=== PATIENT | male | born 1945 | race African-American/Black ===

== ENCOUNTER 2017-12-08 08:00 | Outpatient (RCR) ==
--- NOTE | 2017-11-29 20:31 | RS.OPPTEV2 ---
Date of Note: 11/29/17 Visit #: 1 Date of Evaluation: 11/29/17 Payer Source: MEDICARE Surgery Performed?: Yes (cervical fusion 11/04/17) Treatment Diagnosis: UE weakness, s/p cervical spinal fusion History of Condition/Mechanism of Injury:: pt underwent cervical spine fusion on 11/04/17. pt has been experiencing RUE weakness since surgery. pt did receive home health PT/OT. Prior Level of Function.....Patient was independent with: ADL's, Self Care, Ambulation/Mobility, Community Integration/Access Functional Limitations: Sleep, Self Care, ADL's, Reaching, Pushing, Pulling, Lifting, Carrying, Community Access/Integration Current Subjective/complaints:: pt states he is still having cervical pain radiating into B shlds as well as weakness in RUE. pt states he is having difficulty using RUE at all. Treatment Side (optional): Right *Precautions: cervical collar is to be worn while in the car or up and around Medical History Medical History: Hypertension, Diabetes, Arthritis, Cancer (colon) Surgical History: Knee Replacement, Cervical Spine, CABG Smoking Status: Former smoker Hx Home Medications: aldactone, atorvastatin, cozaar, docusate sodium, eliquis, glipizide, metformin, jardiance, lopressor, methocarbamol, nitroglycerin, percocet Patient's Goals: be able to use my arm Pain Assessment - Pain Description Pain Location: cervical spine (posterior) radiating into B shlds R worse than L Current Pain Intensity: 8/10 Worst Pain Intensity: 10/10 Functional Outcome Measure UE Functional Index: 36 (55%) - G Codes & Severity Modifier G Codes & Modifier: carrying, moving, handling current: CK. carrying, moving, handling goal CI Source of G Code score: UE functional index Observation - Observation Inspection: pt wearing soft cervical collar Posture: Forward Head, Rounded Shoulders, Increased Thoracic Kyphosis, Decreased Lumbar Lordosis, Decreased Cervical Lordosis Handedness: Right Gait - Gait Pattern General Gait Pattern Observation: Crouched Gait General Range of Motion: LUE WFL's. BLE WFL's Muscle Strength: LUE atleast 3/5 as noted by AROM not MMT due to cervical surgery. BLE 5/5 - ROM Cervical Spine Range of Motion Limitations: Soft Tissue Tightness, Muscle Weakness, Pain Comments: unable to fully assess cervical ROM due to cervical collar and recent surgery. Shoulder ROM: Left WFL's Shoulder Muscle Strength: Left WFL's - Right Shoulder ROM Right Shoulder Flexion: 150 (AAROM supine) Right Shoulder Abduction: 114 (AAROM supine) Right Shoulder ROM Limitations: Soft Tissue Tightness, Muscle Weakness, Pain Comments: in sitting AROM flex 20, abd 40. IR WFL's. ER significantly limited - Right Shoulder Strength Right Shoulder Flexion: 2 Poor Right Shoulder Abduction: 2 Poor Right Shoulder External Rotation: 2 Poor Right Shoulder Internal Rotation: 2 Poor - Special Tests Comments: unable to perform special tests due to limited ROM> Palpation Palpation Findings: Tenderness, Trigger Point, Muscle Guarding Comments:: tenderness over biceps insertion,. trigger points noted in upper traps R worse than L,. muscle guarding noted in upper traps and scapular muscles Sensation - Sensation Right Upper Extremity: Impaired Left Upper Extremity: Impaired Right Lower Extremity: Intact/Normal Left Lower Extremity: Intact/Normal Comments: pt reports n/t B hands Balance - Sitting Balance Static Sitting Balance: Normal Dynamic Sitting Balance: Normal - Standing Balance Static Standing Balance: Good Dynamic Standing Balance: Good - Heat/Cryotherapy Treatment: Cryotherapy Comments:: cervical spine Interventions - Exercise/Activities/Manual Therapy Exercises/Activities: pt instructed on codmans, as well as scapular retraction and AAROM R shld Manual Therapy: n/a HOME EXERCISE PROGRAM: pt given written HEP including pendulum ex, AAROM R shld , scapular retraction - Charges Timed Code Treatment Minutes: 43 Total Treatment Time: 51 Procedures billed for this date of service:: eval med, cold pack EVALUATION COMPLEXITY LEVEL EVALUATION COMPLEXITY LEVEL: HISTORY: Medium (dm, htn, cervical sx, oa), EXAM OF BODY SYSTEMS: Medium (pain, ROM, strength, posture), CLINICAL PRESENTATION: Medium (evolving), CLINICAL DECISION MAKING: Medium Assessment Assessment: pt presents with increased muscle tightness and guarding in R upper trap, scapular area with trigger points noted in upper trap. pt with limited ROM and pain with AAROM. pt also with recent cervical fusion with limited cervical ROM. Plan to call MD to get clarification on any restrictions in cervical spine. Patient Education: Home Exercise Program, Education of Plan of Care Rehab Potential: Good Short Term Goals Goal #1: pt rate pain <6/10 Goal to be met by: 12/13/17 Goal #2: pt independent with initial HEP Goal to be met by: 12/13/17 Goal #3: pt with improve AROM R shld flex 90 abd 90 Goal to be met by: 12/13/17 Sewing Demonstrator Goals Goal #1: pt report pain <5/10 Goal to be met by: 12/27/17 Goal #2: pt report ability to perform ADL's independently Goal to be met by: 12/27/17 Goal #3: pt with improved ROM R shld AROM WFL's Goal to be met by: 12/27/17 Goal #4: Improve strength R shld to atleast 3 to 3+/5 Goal to be met by: 12/27/17 Plan - Treatment to be Provided Procedures: Therapeutic Exercises, Therapeutic Activity, Neuromuscular Rehab, Manual Therapy, Patient Education Modalities: Cryotherapy, Hot Packs - Treatment Plan Frequency: 2 X week Duration: 4 weeks ORDER # VISITS AND/OR THROUGH DATE: 12/27/17 - Treatment Code (1) Muscle weakness of right upper extremity Code(s): M62.81 - MUSCLE WEAKNESS (GENERALIZED) (2) S/P cervical spinal fusion Code(s): Z98.1 - ARTHRODESIS STATUS (3) Pain in joint, shoulder region Code(s): M25.519 - PAIN IN UNSPECIFIED SHOULDER Qualifiers: Laterality: right Qualified Code(s): M25.511 - Pain in right shoulder (4) Muscle tightness Code(s): M62.89 - OTHER SPECIFIED DISORDERS OF MUSCLE
--- NOTE | 2017-12-01 09:20 | RS.OPPTDN ---
Subjective Date of Note: 12/01/17 Visit #: 2 Date of Evaluation: 11/29/17 Payer Source: MEDICARE Treatment Diagnosis: UE weakness, s/p cervical spinal fusion Current Subjective/complaints:: Patient reports the pain stays about the same during the day,lessens at night with meds.,but has difficulty sleeping when the meds. effect wears off. *Precautions: cervical collar is to be worn while in the car or up and around Pain Assessment - Pain Description Pain Location: cervical Current Pain Intensity: 8 - Heat/Cryotherapy Treatment: Hot Pack (20 mins. prior to manual therapy) Interventions - Exercise/Activities/Manual Therapy Exercises/Activities: Hep review only today. Total minutes of Exercise: 0 Manual Therapy: Soft tissue mobs. to cervical /upper traps ,trigger point techniques as tolerated. Total minutes of Manual Therapy: 25 HOME EXERCISE PROGRAM: pt given written HEP including pendulum ex, AAROM R shld , scapular retraction - Charges Timed Code Treatment Minutes: 25 Total Treatment Time: 45 Procedures billed for this date of service:: hp,manual therapy 2 Assessment: Patient tolerates manual therapy well,.he has moderate tone in the upper traps today,but no significant trigger point tenderness. He is attentive to HEP recommendations,compliant to wearing cervical collar. Patient Education: Education of diagnosis, Body/Joint mechanics, Home Exercise Program, Home Safety, Activity Modification, Education of Plan of Care Short Term Goals Goal #1: pt rate pain <6/10 Goal to be met by: 12/13/17 Progress towards Goal:: No Change Goal #2: pt independent with initial HEP Goal to be met by: 12/13/17 Progress towards Goal:: Progressing Goal #3: pt with improve AROM R shld flex 90 abd 90 Goal to be met by: 12/13/17 Jail Goals Goal #1: pt report pain <5/10 Goal to be met by: 12/27/17 Goal #2: pt report ability to perform ADL's independently Goal to be met by: 12/27/17 Goal #3: pt with improved ROM R shld AROM WFL's Goal to be met by: 12/27/17 Goal #4: Improve strength R shld to atleast 3 to 3+/5 Goal to be met by: 12/27/17 Plan PLAN OF CARE EXPIRES ON:: 12/27/17 ORDER # VISITS AND/OR THROUGH DATE: 12/27/17 PLAN: Cont. PT to decrease cervical pain ,improve ROM .
--- NOTE | 2017-12-04 09:57 | RS.OPPTDN ---
Subjective Date of Note: 12/04/17 Visit #: 3 Date of Evaluation: 11/29/17 Payer Source: MEDICARE Treatment Diagnosis: UE weakness, s/p cervical spinal fusion Current Subjective/complaints:: Patient reports the neck pain is about the same this morning,but gradually lessens as the day progresses. *Precautions: cervical collar is to be worn while in the car or up and around Pain Assessment - Pain Description Pain Location: cervical /upper traps Current Pain Intensity: 8 Other Comments regarding Pain:: lessens as the day progresses - Heat/Cryotherapy Treatment: Hot Pack (20 mins. to cervical region /upper traps. prior to manual therapy.) Interventions - Exercise/Activities/Manual Therapy Exercises/Activities: Hep review of pendulum ,scapular retraction ,gentle shoulder circles,chin tucks.ALL IN PAIN FREE ROM . Total minutes of Exercise: 0 Manual Therapy: Soft tissue mobs. to cervical /upper traps ,trigger point techniques as tolerated. Total minutes of Manual Therapy: 25 mins. HOME EXERCISE PROGRAM: pt given written HEP including pendulum ex, AAROM R shld , scapular retraction - Charges Timed Code Treatment Minutes: 25 Total Treatment Time: 45 Procedures billed for this date of service:: hp,manual therapy 2 Assessment: Patient has decreased tone in the upper traps and cervical area today.He has good understanding of HEP.The R UE strength is slowly improving, with no report of radiating pain today. Patient Education: Body/Joint mechanics, Home Exercise Program, Home Safety, Activity Modification, Education of Plan of Care Patient demonstrates compliance with HEP?: Yes Short Term Goals Goal #1: pt rate pain <6/10 Goal to be met by: 12/13/17 Progress towards Goal:: No Change Goal #2: pt independent with initial HEP Goal to be met by: 12/13/17 Progress towards Goal:: Progressing Goal #3: pt with improve AROM R shld flex 90 abd 90 Goal to be met by: 12/13/17 Progress towards Goal:: Progressing Comments:: flex to 55,abd to 56 (sitting) Assisted Goals Goal #1: pt report pain <5/10 Goal to be met by: 12/27/17 Goal #2: pt report ability to perform ADL's independently Goal to be met by: 12/27/17 (reports feeding himself slightly better with the R UE) Progress towards goal: Progressing Goal #3: pt with improved ROM R shld AROM WFL's Goal to be met by: 12/27/17 Goal #4: Improve strength R shld to atleast 3 to 3+/5 Goal to be met by: 12/27/17 Plan PLAN OF CARE EXPIRES ON:: 12/27/17 ORDER # VISITS AND/OR THROUGH DATE: 12/27/17 PLAN: Continue PT to improve cervical motion ,UE strength,eliminate pain .
--- NOTE | 2017-12-04 15:01 | RS.CSNOTE ---
PT Case Note Date of Note: 12/04/17 Title of document: update from MD Note: Received call from Dr. Rendon with clarification orders that pt has a 15lb lifting restriction, no restrictions of ROM, pt is allowed to take collar off for ROM ex's.
--- NOTE | 2017-12-06 15:50 | RS.OPPTDN ---
Subjective Date of Note: 12/06/17 Visit #: 4 Date of Evaluation: 11/29/17 Payer Source: MEDICARE Treatment Diagnosis: UE weakness, s/p cervical spinal fusion Current Subjective/complaints:: Patient says he was a little sore after his last session, but also admit it seems to be helping. He says he is slowly beginning to turn his neck. *Precautions: cervical collar is to be worn while in the car or up and around - Heat/Cryotherapy Treatment: Hot Pack (cervical in sitting x 20 mins) Interventions - Exercise/Activities/Manual Therapy Exercises/Activities: Patient receives Passive gentle cspine rotation, isometric neck retraction. Shoulder shrugs and scap retraction. Began 2# therapy wand short range bilateral shoulder flexion 2x5. Total minutes of Exercise: 6 Manual Therapy: Soft tissue mobs. to cervical /upper traps ,trigger point techniques as tolerated. Total minutes of Manual Therapy: 23 HOME EXERCISE PROGRAM: pt given written HEP including pendulum ex, AAROM R shld , scapular retraction - Charges Timed Code Treatment Minutes: 29 Total Treatment Time: 49 Procedures billed for this date of service:: hp, MT2 Assessment: Patient appears to oxana STM well today. He maintains moderate increase in muscle guarding to bilateral UT and upper/mid cervical paraspinals. He maintains mild pain generally throughout the neck, but does ease with treatment. He remains guarded with passive motion. Patient Education: Body/Joint mechanics, Home Exercise Program, Education of Plan of Care Patient demonstrates compliance with HEP?: Yes Short Term Goals Goal #1: pt rate pain <6/10 Goal to be met by: 12/13/17 Progress towards Goal:: Progressing Goal #2: pt independent with initial HEP Goal to be met by: 12/13/17 Progress towards Goal:: Progressing Goal #3: pt with improve AROM R shld flex 90 abd 90 Goal to be met by: 12/13/17 Progress towards Goal:: Progressing Regional Liaison Goals Goal #1: pt report pain <5/10 Goal to be met by: 12/27/17 Goal #2: pt report ability to perform ADL's independently Goal to be met by: 12/27/17 (reports feeding himself slightly better with the R UE) Progress towards goal: Progressing Goal #3: pt with improved ROM R shld AROM WFL's Goal to be met by: 12/27/17 Goal #4: Improve strength R shld to atleast 3 to 3+/5 Goal to be met by: 12/27/17 Plan PLAN OF CARE EXPIRES ON:: 12/27/17 ORDER # VISITS AND/OR THROUGH DATE: 12/27/17 PLAN: continue TIW with thermotherapy and therex/MT
--- NOTE | 2017-12-08 10:08 | RS.OPPTDN ---
Subjective Date of Note: 12/08/17 Visit #: 5 Date of Evaluation: 11/29/17 Payer Source: MEDICARE Treatment Diagnosis: UE weakness, s/p cervical spinal fusion Current Subjective/complaints:: Patient says he felt relief after his session last treatment. He says he has been practicing neck mobility at home in supine and sitting. He says that R shoulder is stiff and with the past few days of rain has bothered his neck and R shoulder. *Precautions: cervical collar is to be worn while in the car or up and around - Heat/Cryotherapy Treatment: Hot Pack (cervical x 20 mins sitting) Interventions - Exercise/Activities/Manual Therapy Exercises/Activities: Patient receives Passive gentle cspine rotation, isometric neck retraction, L and R SB. Shoulder shrugs and scap retraction. Continued with 2# therapy wand short range bilateral shoulder flexion 2x8 in sitting. Began red tband for short range scap retraction in sitting 2x8. Total minutes of Exercise: 12 Manual Therapy: Soft tissue mobs. to cervical /upper traps ,trigger point techniques as tolerated. Total minutes of Manual Therapy: 17 HOME EXERCISE PROGRAM: pt given written HEP including pendulum ex, AAROM R shld , scapular retraction - Charges Timed Code Treatment Minutes: 29 Total Treatment Time: 49 Procedures billed for this date of service:: hp, MT, EX Assessment: Patient experiencing decreased pain to the neck with previous treatment, but does have intermittent ache and stiffness to cspine and R shoulder he attributes to continuous rain. He is able to demo good resistance with isometrics today and good oxana of bilateral UE flexion with therapy wand. Patient is compliant with all therex at home. Patient Education: Education of diagnosis, Body/Joint mechanics, Home Exercise Program Patient demonstrates compliance with HEP?: Yes Short Term Goals Goal #1: pt rate pain <6/10 Goal to be met by: 12/13/17 Progress towards Goal:: Progressing Goal #2: pt independent with initial HEP Goal to be met by: 12/13/17 Progress towards Goal:: Progressing Goal #3: pt with improve AROM R shld flex 90 abd 90 Goal to be met by: 12/13/17 Progress towards Goal:: Progressing Senior Care Goals Goal #1: pt report pain <5/10 Goal to be met by: 12/27/17 Goal #2: pt report ability to perform ADL's independently Goal to be met by: 12/27/17 (reports feeding himself slightly better with the R UE) Progress towards goal: Progressing Goal #3: pt with improved ROM R shld AROM WFL's Goal to be met by: 12/27/17 Goal #4: Improve strength R shld to atleast 3 to 3+/5 Goal to be met by: 12/27/17 Plan PLAN OF CARE EXPIRES ON:: 12/27/17 ORDER # VISITS AND/OR THROUGH DATE: 12/27/17 PLAN: Patient to continue BIW for pain reduction and improved mobility to the [place] [facility].
== END 2017-12-09 23:59 ==
PROVIDERS: ATTEND Neurological Surgery
DX: R29.898 Other symptoms and signs involving the musculoskeletal system (principal); Z98.1 Arthrodesis status; M62.81 Muscle weakness (generalized); M25.511 Pain in right shoulder; M62.89 Other specified disorders of muscle

== ENCOUNTER 2017-12-18 08:15 | Outpatient (RCR) ==
--- NOTE | 2017-12-11 09:24 | RS.OPPTDN ---
Subjective Date of Note: 12/11/17 Visit #: 6 Date of Evaluation: 11/29/17 Payer Source: MEDICARE Treatment Diagnosis: UE weakness, s/p cervical spinal fusion Current Subjective/complaints:: Patient says he is having less soreness to the neck. Reports that he has been performing some HEP without difficulty. *Precautions: cervical collar is to be worn while in the car or up and around Pain Assessment - Pain Description Pain Location: sore, R side more stiff and sore than L. R shoulder motion improving. - Heat/Cryotherapy Treatment: Hot Pack (15 mins cervical in sitting) Interventions - Exercise/Activities/Manual Therapy Exercises/Activities: Patient receives Passive cspine rotation, isometric neck retraction, L and R SB. Shoulder shrugs and scap retraction. Continued with 2 # therapy wand short range bilateral shoulder flexion 2x8 in sitting 1 set with collar on, 1 set off. R UE PROM for flex, abd, IR/ER in sitting. Total minutes of Exercise: 15 Manual Therapy: Soft tissue mobs. to cervical /upper traps ,trigger point techniques as tolerated. Increased pressures to more DTM bilaterally as patient is able to demo improved toleration. Total minutes of Manual Therapy: 16 HOME EXERCISE PROGRAM: pt given written HEP including pendulum ex, AAROM R shld , scapular retraction - Charges Timed Code Treatment Minutes: 31 Total Treatment Time: 46 Procedures billed for this date of service:: hp, MT, EX Assessment: Patient experiencing less soreness to bilateral UT, allowing increased passive cervical motions and increased trigger point/MT today. He continues to have limited R UE AROM, but oxana PROM to near WNL for ABD and FLEX. Patient Education: Education of diagnosis, Body/Joint mechanics, Home Exercise Program, Education of Plan of Care Patient demonstrates compliance with HEP?: Yes Short Term Goals Goal #1: pt rate pain <6/10 Goal to be met by: 12/13/17 Progress towards Goal:: Progressing Goal #2: pt independent with initial HEP Goal to be met by: 12/13/17 Progress towards Goal:: Progressing Goal #3: pt with improve AROM R shld flex 90 abd 90 Goal to be met by: 12/13/17 Progress towards Goal:: Progressing Spin Tank Tender Goals Goal #1: pt report pain <5/10 Goal to be met by: 12/27/17 Goal #2: pt report ability to perform ADL's independently Goal to be met by: 12/27/17 (reports feeding himself slightly better with the R UE) Progress towards goal: Progressing Goal #3: pt with improved ROM R shld AROM WFL's Goal to be met by: 12/27/17 Goal #4: Improve strength R shld to atleast 3 to 3+/5 Goal to be met by: 12/27/17 Plan PLAN OF CARE EXPIRES ON:: 12/27/17 ORDER # VISITS AND/OR THROUGH DATE: 12/27/17 PLAN: CONT BIW
--- NOTE | 2017-12-14 11:19 | RS.OPPTDN ---
Subjective Date of Note: 12/14/17 Visit #: 7 Date of Evaluation: 11/29/17 Payer Source: MEDICARE Treatment Diagnosis: UE weakness, s/p cervical spinal fusion Current Subjective/complaints:: Patient says he is beginning to have some increased soreness to his neck muscles, but also says he expected that with adding exercises and more mobility. Patient says he needs to find out when his follow up appt is with Dr. Rendon because he feels he needs more therapy. *Precautions: cervical collar is to be worn while in the car or up and around Pain Assessment - Pain Description Pain Location: general muscle soreness, tender over the incision - Heat/Cryotherapy Treatment: Hot Pack (cervical in sitting x 20 mins) Interventions - Exercise/Activities/Manual Therapy Exercises/Activities: Patient receives Passive cspine rotation, isometric neck retraction, L and R SB. Shoulder shrugs and scap retraction. PROM for the R shoulder all directions. Manual isometrics for shoulder FLEX/EXT/IR/ER x 5 ea. Began shoulder pulleys with collar on. Total minutes of Exercise: 17 Manual Therapy: Soft tissue mobs. to cervical /upper traps ,trigger point techniques as tolerated. Increased pressures to more DTM bilaterally as patient is able to demo improved toleration. Total minutes of Manual Therapy: 13 HOME EXERCISE PROGRAM: pt given written HEP including pendulum ex, AAROM R shld , scapular retraction - Charges Timed Code Treatment Minutes: 30 Total Treatment Time: 50 Procedures billed for this date of service:: hp, mt, ex Assessment: Patient continues with tenderness over incision, but decreased muscle guarding to bilateral UT. He is able to oxana increased passive shoulder ROM and cspine mobility. He is able to achieve full shoulder flexion with pulleys today with little to no pain. Good resistance throughout all isometrics. Patient Education: Home Exercise Program, Education of Plan of Care Patient demonstrates compliance with HEP?: Yes Short Term Goals Goal #1: pt rate pain <6/10 Goal to be met by: 12/13/17 Progress towards Goal:: Met Goal #2: pt independent with initial HEP Goal to be met by: 12/13/17 Progress towards Goal:: Progressing Goal #3: pt with improve AROM R shld flex 90 abd 90 Goal to be met by: 12/13/17 Progress towards Goal:: Progressing Jail Goals Goal #1: pt report pain <5/10 Goal to be met by: 12/27/17 Goal #2: pt report ability to perform ADL's independently Goal to be met by: 12/27/17 (reports feeding himself slightly better with the R UE) Progress towards goal: Progressing Goal #3: pt with improved ROM R shld AROM WFL's Goal to be met by: 12/27/17 Goal #4: Improve strength R shld to atleast 3 to 3+/5 Goal to be met by: 12/27/17 Plan PLAN OF CARE EXPIRES ON:: 12/27/17 ORDER # VISITS AND/OR THROUGH DATE: 12/27/17 PLAN: Patient to continue x 1 more session per order. Obtain continuation until follow up to work on pain/muscle guarding, ROM, and postural strengthening.
--- NOTE | 2017-12-18 10:05 | RS.OPPTDN ---
Subjective Date of Note: 12/18/17 Visit #: 8 Date of Evaluation: 11/29/17 Payer Source: MEDICARE Treatment Diagnosis: UE weakness, s/p cervical spinal fusion Current Subjective/complaints:: Patient says that he is still having a hard time turning his neck. He reports his R shoulder is much better and has improved mobility. He states he is able to comb his hair now and often without the pain and difficulty he had previously. States he hopes to continue therapy until he returns to the MD next month. *Precautions: cervical collar is to be worn while in the car or up and around Pain Assessment - Pain Description Pain Location: "Both sides of my neck are sore." - Heat/Cryotherapy Treatment: Hot Pack (cervical x 20 mins in sitting) Interventions - Exercise/Activities/Manual Therapy Exercises/Activities: Patient receives Passive cspine rotation, isometric neck retraction, L and R SB. Shoulder shrugs and scap retraction. PROM for the R shoulder all directions. Manual isometrics for shoulder FLEX/EXT/IR/ER x 5 ea. Total minutes of Exercise: 12 Manual Therapy: Soft tissue mobs. to cervical /upper traps ,DTM, trigger point techniques as tolerated. Increased pressures to more DTM bilaterally as patient is able to demo improved toleration. Total minutes of Manual Therapy: 16 HOME EXERCISE PROGRAM: pt given written HEP including pendulum ex, AAROM R shld , scapular retraction - Charges Timed Code Treatment Minutes: 28 Total Treatment Time: 48 Procedures billed for this date of service:: hp, MT, EX Assessment: Patient demo increased muscle guarding throughout bilateral UT, but does seem to be able to [place] slight increase in cervical rotation bilaterally after MT. R shoulder ROM is improving and now passively WNL all directions and actively WFL allowing him to perform more ADLs such as combing his hair. Patient Education: Education of diagnosis, Home Exercise Program, Education of Plan of Care Patient demonstrates compliance with HEP?: Yes Short Term Goals Goal #1: pt rate pain <6/10 Goal to be met by: 12/13/17 Progress towards Goal:: Met Goal #2: pt independent with initial HEP Goal to be met by: 12/13/17 Progress towards Goal:: Partially Met Goal #3: pt with improve AROM R shld flex 90 abd 90 Goal to be met by: 12/13/17 Progress towards Goal:: Met Wharf Worker Goals Goal #1: pt report pain <5/10 Goal to be met by: 12/27/17 Goal #2: pt report ability to perform ADL's independently Goal to be met by: 12/27/17 (reports feeding himself slightly better with the R UE) Progress towards goal: Progressing Goal #3: pt with improved ROM R shld AROM WFL's Goal to be met by: 12/27/17 Progress towards goal: Progressing Goal #4: Improve strength R shld to atleast 3 to 3+/5 Goal to be met by: 12/27/17 Plan PLAN OF CARE EXPIRES ON:: 12/27/17 ORDER # VISITS AND/OR THROUGH DATE: 12/27/17 PLAN: This is patient's last day on current order. Call has been placed to MD office to continue. We will call patient to schedule once we have received continuation.
== END 2018-01-09 23:59 ==
PROVIDERS: ATTEND Neurological Surgery
DX: Z98.1 Arthrodesis status (principal); R29.898 Other symptoms and signs involving the musculoskeletal system; M62.81 Muscle weakness (generalized); M25.511 Pain in right shoulder; M62.89 Other specified disorders of muscle

== ENCOUNTER 2018-02-08 13:00 | Outpatient (RCR) ==
--- NOTE | 2018-02-02 11:09 | RS.OPPTEV2 ---
Date of Note: 02/01/18 Visit #: 1 Date of Evaluation: 02/01/18 Payer Source: MEDICARE Surgery Performed?: Yes (cervical fusion 11/04/17) Treatment Diagnosis: s/p cervical spinal fusion, unsteady gait, BUE weakness, History of Condition/Mechanism of Injury:: pt underwent cervical fusion in 2017, he continues to have decreased cervical ROM and some weakness in BUE. Prior Level of Function.....Patient was independent with: ADL's, Self Care, Ambulation/Mobility, Community Integration/Access Functional Limitations: Sleep, Self Care, ADL's, Reaching, Pushing, Pulling, Lifting, Carrying, Community Access/Integration Current Subjective/complaints:: pt states he has been wanting to restart therapy for quite some time, waiting on MD to order. pt voices frustration that script is for aggressive gait training, states he is walking fine. pt states that he walks 8 times around his house 2x a day. He states he needs to work on neck ROM, because the MD will not allow him to drive unless he has improved neck ROM. Treatment Side (optional): Right *Precautions: cervical collar is to be worn while in the car or up and around Medical History Medical History: Hypertension, Diabetes, Arthritis, Cancer (colon) Surgical History: Knee Replacement, Cervical Spine, CABG Smoking Status: Former smoker Hx Home Medications: aldactone, atorvastatin, cozaar, docusate sodium, eliquis, glipizide, metformin, jardiance, lopressor, methocarbamol, nitroglycerin, percocet Patient's Goals: Increase cervical ROM Pain Assessment - Pain Description Pain Location: cervical spine Pain Description: Aching, Chronic Current Pain Intensity: 8/10 Worst Pain Intensity: 10/10 Functional Outcome Measure Neck Disability Index: 33 - G Codes & Severity Modifier G Codes & Modifier: carrying moving and handling objects: current CL. carrying moving and handling objects: goal CJ Source of G Code score: neck disability index Observation - Observation Posture: Forward Head, Rounded Shoulders, Increased Thoracic Kyphosis, Decreased Lumbar Lordosis Handedness: Right Gait - Gait Pattern Gait Comments: pt amb with increased lat sway. pt amb with cane no LOB during gait . General Range of Motion: BUE WFL's. BLE WFL's Muscle Strength: RUE shld flex 4/5, elbow flex/ext 5/5. LUE shld flex 4+/5, elbow flex/ext 5/5. decreased termite helper BUE. BLE 5/5 - ROM Cervical Spine Range of Motion Limitations: Soft Tissue Tightness, Muscle Weakness, Pain Comments: cervical flex approx 15. ext 10. cervical rotation R and L approx 5. side bending approx 5. ROM significantly limited with pain in all planes. - Strength Cervical Extension: 2 Poor Cervical Flexion: 2 Poor Cervical Lateral Flexion: 2 Poor Cervical Rotation: 2 Poor - Special Tests Foraminal Distraction: Negative Foraminal Compression: Negative Left, Negative Right Palpation Palpation Findings: Tenderness, Muscle Guarding Comments:: pt presents with tenderness and muscle guarding to palpation. pt with hard area noted around C7 questionable scar tissue. Sensation - Sensation Right Upper Extremity: Intact/Normal Left Upper Extremity: Intact/Normal Right Lower Extremity: Impaired Left Lower Extremity: Impaired Comments: pt reports n/t and burning B feet due to neuropathy Balance - Sitting Balance Static Sitting Balance: Good Dynamic Sitting Balance: Good - Standing Balance Static Standing Balance: Good Dynamic Standing Balance: Good - Heat/Cryotherapy Treatment: Hot Pack Comments:: cervical spine Interventions - Exercise/Activities/Manual Therapy Exercises/Activities: pt performed corner stretch, scapular retraction, shld shrugs Manual Therapy: n/a HOME EXERCISE PROGRAM: pt given written HEP including: corner stretch, scapular retracion, shld shrugs. - Charges Timed Code Treatment Minutes: 54 Total Treatment Time: 61 Procedures billed for this date of service:: eval med, hp EVALUATION COMPLEXITY LEVEL EVALUATION COMPLEXITY LEVEL: HISTORY: Medium (HTN, DM, OA, s/p cervical fusion) , EXAM OF BODY SYSTEMS: Medium (pain, ROM, strength, muscle tightness), CLINICAL PRESENTATION: Medium, CLINICAL DECISION MAKING: Medium Assessment Assessment: pt gait appears safe with no LOB with cane, no ataxia noted. pt with decreased strength BUE shld, termite helper. pt with significantly limited cervical ROM and pain. feel pt would benefit from PT for therex for cervical ROM, strengthening as well as modalities to decrease muscle tightness. Patient Education: Home Exercise Program, Education of Plan of Care Rehab Potential: Good Problems/Comments: Called MD office and requested clarification and request order for cervical ROM and strengthening. Short Term Goals Goal #1: pt with improved cervical ROM by 20% Goal to be met by: 02/22/18 Goal #2: pt rate pain less than 8/10 with activity Goal to be met by: 02/22/18 Goal #3: pt independent with initial HEP Goal to be met by: 02/22/18 Goal #4: pt report improved ability to perform cervical ROM to improve ADL's Goal to be met by: 02/22/18 Penitentiary Goals Goal #1: pt report pain <5/10 with activity Goal to be met by: 03/15/18 Goal #2: Improved cervical ROM to allow for functional ROM for driving Goal to be met by: 03/15/18 Goal #3: Improved BUE strength to allow pt to perform daily chores independently Goal to be met by: 03/15/18 Goal #4: pt independent with HEP to maintain functional gains Goal to be met by: 03/15/18 Plan - Treatment to be Provided Procedures: Therapeutic Exercises, Therapeutic Activity, Neuromuscular Rehab, Manual Therapy, Massage, Patient Education Modalities: Cryotherapy, Hot Packs - Treatment Plan Frequency: 2 X week Duration: 6 weeks ORDER # VISITS AND/OR THROUGH DATE: 03/15/18 - Treatment Code (1) Cervical pain Code(s): M54.2 - CERVICALGIA (2) Muscle tightness Code(s): M62.89 - OTHER SPECIFIED DISORDERS OF MUSCLE (3) S/P cervical spinal fusion Code(s): Z98.1 - ARTHRODESIS STATUS
--- NOTE | 2018-02-06 12:01 | RS.OPPTDN ---
Subjective Date of Note: 02/06/18 Visit #: 2 Date of Evaluation: 02/01/18 Payer Source: MEDICARE Treatment Diagnosis: s/p cervical spinal fusion, unsteady gait, BUE weakness, Current Subjective/complaints:: Patient enters [facility] without cervical collar today.He has guarded motion with rotation of his neck .He reports the is going to prescribe muscle relaxer. Pain Assessment - Pain Description Pain Location: cervical Pain Description: Tightness, Dull, Aching Current Pain Intensity: 6/10 Other Comments regarding Pain:: pain meds 2x/day - Heat/Cryotherapy Treatment: Hot Pack (20 mis. prior to exercises) Interventions - Exercise/Activities/Manual Therapy Exercises/Activities: 10 mins. passive and AROM of rotation,chin tucks ,lateral flexion .Cervical rotation to 15- 20 degrees bilaterally,lateral flexion limited to 5 degrees.Patient instructed to do chin tucks in supine for better technique. Total minutes of Exercise: 10 Manual Therapy: 20 mins.deep tissue mobs. to cervical/upper traps area. Total minutes of Manual Therapy: 20 HOME EXERCISE PROGRAM: pt given written HEP including: corner stretch, scapular retracion, shld shrugs. - Charges Timed Code Treatment Minutes: 30 Total Treatment Time: 50 Procedures billed for this date of service:: hp,manual ,ex 1 Assessment: Patient has heavy scarring of the incision ,very limited ROm passively and actively.Hard end feel present with passive otion.He requires cueing for proper chin tucks,tends to flex the neck,cannot iso;ate the chin tuck motion.He reports aching at end ROM with all planes. Patient Education: Education of diagnosis, Body/Joint mechanics, Home Exercise Program, Home Safety, Activity Modification, Education of Plan of Care Short Term Goals Goal #1: pt with improved cervical ROM by 20% Goal to be met by: 02/22/18 Progress towards Goal:: Progressing Goal #2: pt rate pain less than 8/10 with activity Goal to be met by: 02/22/18 Goal #3: pt independent with initial HEP Goal to be met by: 02/22/18 Progress towards Goal:: Progressing Goal #4: pt report improved ability to perform cervical ROM to improve ADL's Goal to be met by: 02/22/18 Inserting Press Operator Goals Goal #1: pt report pain <5/10 with activity Goal to be met by: 10/04/18 Goal #2: Improved cervical ROM to allow for functional ROM for driving Goal to be met by: 03/15/18 Goal #3: Improved BUE strength to allow pt to perform daily chores independently Goal to be met by: 03/15/18 Goal #4: pt independent with HEP to maintain functional gains Goal to be met by: 03/15/18 Plan PLAN OF CARE EXPIRES ON:: 03/15/18 ORDER # VISITS AND/OR THROUGH DATE: 03/15/18 PLAN: Continue PT to increase cervical ROM ,reduce/eliminate pain for improved ADL's.
--- NOTE | 2018-02-08 16:23 | RS.OPPTDN ---
Subjective Date of Note: 02/08/18 Visit #: 3 Date of Evaluation: 02/01/18 Payer Source: MEDICARE Treatment Diagnosis: s/p cervical spinal fusion, unsteady gait, BUE weakness, Current Subjective/complaints:: Reports elevated pain and soreness after last session and yesterday ,but better today.He is now taking the muscle relaxers. Pain Assessment - Pain Description Pain Location: cervical Pain Description: Tightness, Dull, Aching, Chronic Current Pain Intensity: 2-3/10 Worst Pain Intensity: 8 yesterday Other Comments regarding Pain:: no radiculopathy - Heat/Cryotherapy Treatment: Hot Pack (15 mins. prior to manual therapy and exercises) Interventions - Exercise/Activities/Manual Therapy Exercises/Activities: 15 mins. passive and AROM of rotation,chin tucks ,lateral flexion .Cervical rotation to 15- 20 degrees bilaterally,lateral flexion limited to 5 degrees.Patient assisted with chin tucks today in sitting for better technique. Total minutes of Exercise: 15 Manual Therapy: 20 mins.deep tissue mobs. to cervical/upper traps area. Total minutes of Manual Therapy: 20 HOME EXERCISE PROGRAM: pt given written HEP including: corner stretch, scapular retracion, shld shrugs. - Charges Timed Code Treatment Minutes: 35 Total Treatment Time: 50 Procedures billed for this date of service:: hp,manual,ex Assessment: Patient has softening of scar tissue at incision today,but still limited with motion.The muscle relaxers are helping him tolerate the stretches better today.He needs cues for proper technique dong chin tucks,still tends to initiate cervical flexion ,cannot isolate the proper motion. Patient Education: Education of diagnosis, Body/Joint mechanics, Home Exercise Program, Home Safety, Activity Modification, Education of Plan of Care Patient demonstrates compliance with HEP?: Yes Short Term Goals Goal #1: pt with improved cervical ROM by 20% Goal to be met by: 02/22/18 Progress towards Goal:: No Change Goal #2: pt rate pain less than 8/10 with activity Goal to be met by: 02/22/18 Progress towards Goal:: Progressing Goal #3: pt independent with initial HEP Goal to be met by: 02/22/18 Progress towards Goal:: Progressing Goal #4: pt report improved ability to perform cervical ROM to improve ADL's Goal to be met by: 02/22/18 Progress towards Goal:: No Change Sales Coordinator Goals Goal #1: pt report pain <5/10 with activity Goal to be met by: 03/15/18 Progress towards goal: Progressing Goal #2: Improved cervical ROM to allow for functional ROM for driving Goal to be met by: 03/15/18 Goal #3: Improved BUE strength to allow pt to perform daily chores independently Goal to be met by: 03/15/18 Goal #4: pt independent with HEP to maintain functional gains Goal to be met by: 03/15/18 Plan PLAN OF CARE EXPIRES ON:: 03/15/18 ORDER # VISITS AND/OR THROUGH DATE: 03/15/18 PLAN: Continue PT to increase cervical motion with less or no pain.
== END 2018-02-09 23:59 ==
PROVIDERS: ATTEND Neurological Surgery
DX: Z98.1 Arthrodesis status (principal); G95.20 Unspecified cord compression; R26.81 Unsteadiness on feet; R29.898 Other symptoms and signs involving the musculoskeletal system; R29.818 Other symptoms and signs involving the nervous system; R27.8 Other lack of coordination; M54.2 Cervicalgia; M62.89 Other specified disorders of muscle

== ENCOUNTER 2018-02-22 08:00 | Outpatient (RCR) | payer OTHER ==
--- NOTE | 2018-02-13 09:04 | RS.OPPTDN ---
Subjective Date of Note: 02/13/18 Visit #: 4 Date of Evaluation: 02/01/18 Payer Source: MEDICARE Treatment Diagnosis: s/p cervical spinal fusion, unsteady gait, BUE weakness, Current Subjective/complaints:: Patient feels he is slowly getting better,and the muscle relaxers seem to help. Pain Assessment - Pain Description Pain Description: Tightness, Dull, Aching Current Pain Intensity: 6/10 - Heat/Cryotherapy Treatment: Hot Pack (20 mins. to cervical area) Interventions - Exercise/Activities/Manual Therapy Exercises/Activities: 20 mins. passive and AAROM of chin tucks,rotation to L and R ,lateral flexion ,and scapular pro/retraction.Cervical rotation to L and R is 20 degrees active or pasively.Lateral flexion is 5 to 8 degrees bilaterally. Total minutes of Exercise: 20 Manual Therapy: 20 mins.deep tissue mobs. to cervical/upper traps area. Total minutes of Manual Therapy: 20 HOME EXERCISE PROGRAM: pt given written HEP including: corner stretch, scapular retracion, shld shrugs. - Charges Timed Code Treatment Minutes: 40 Total Treatment Time: 60 Procedures billed for this date of service:: hp,ex ,manual Assessment: Patient has hard end feel for all cervical motion ,lateral flexion to the R elicits sharp pain today.We discussed the POC to focus on pain control, but to do HEP in PAIN FREE ROM.Instructed to focus on postural/scapular exrcises ,since the cervical motion is limited. Patient Education: Education of diagnosis, Body/Joint mechanics, Home Exercise Program, Home Safety, Activity Modification, Education of Plan of Care Patient demonstrates compliance with HEP?: Yes Short Term Goals Goal #1: pt with improved cervical ROM by 20% Goal to be met by: 02/22/18 Progress towards Goal:: No Change Goal #2: pt rate pain less than 8/10 with activity Goal to be met by: 02/22/18 Progress towards Goal:: Progressing Goal #3: pt independent with initial HEP Goal to be met by: 02/22/18 Progress towards Goal:: Partially Met Goal #4: pt report improved ability to perform cervical ROM to improve ADL's Goal to be met by: 02/22/18 Progress towards Goal:: No Change Front Office Medical Assistant Goals Goal #1: pt report pain <5/10 with activity Goal to be met by: 03/15/18 Progress towards goal: Progressing Goal #2: Improved cervical ROM to allow for functional ROM for driving Goal to be met by: 03/15/18 Goal #3: Improved BUE strength to allow pt to perform daily chores independently Goal to be met by: 03/15/18 Goal #4: pt independent with HEP to maintain functional gains Goal to be met by: 03/15/18 Progress towards goal: Progressing Plan PLAN OF CARE EXPIRES ON:: 03/15/18 ORDER # VISITS AND/OR THROUGH DATE: 03/15/18 PLAN: Continue PT to eliminate /reduce cervical pain,increase ROM.
--- NOTE | 2018-02-15 09:05 | RS.OPPTDN ---
Subjective Date of Note: 02/15/18 Visit #: 5 Date of Evaluation: 02/01/18 Payer Source: MEDICARE Treatment Diagnosis: s/p cervical spinal fusion, unsteady gait, BUE weakness, Current Subjective/complaints:: Reports not sleeping as well last night , increased aching in the neck. Pain Assessment - Pain Description Pain Location: cervical Pain Description: Tightness, Dull, Aching, Chronic Current Pain Intensity: 5/10 - Heat/Cryotherapy Treatment: Hot Pack (20 mins. to cervical/upper traps.) Interventions - Exercise/Activities/Manual Therapy Exercises/Activities: 20 mins. total,beginning with corner stretches ,chin tucks,cervical rotation to L and R ,shoulder shrugs. Total minutes of Exercise: 20 Manual Therapy: 20 mins.deep tissue mobs. to cervical/upper traps area. Total minutes of Manual Therapy: 20 HOME EXERCISE PROGRAM: pt given written HEP including: corner stretch, scapular retracion, shld shrugs. - Charges Timed Code Treatment Minutes: 40 Total Treatment Time: 60 Procedures billed for this date of service:: hp,ex,manual therapy Assessment: Patient reports less cervical pain upon arival.He continues to have a firm end feel with rotation ,but the cervical chin tucks and extension have imptoved.The lateral flexion is unchanged.He is attentive and compliant to HEP. Patient Education: Education of diagnosis, Body/Joint mechanics, Home Exercise Program, Home Safety, Activity Modification, Education of Plan of Care Patient demonstrates compliance with HEP?: Yes Short Term Goals Goal #1: pt with improved cervical ROM by 20% Goal to be met by: 02/22/18 Progress towards Goal:: No Change Goal #2: pt rate pain less than 8/10 with activity Goal to be met by: 02/22/18 Progress towards Goal:: Partially Met Goal #3: pt independent with initial HEP Goal to be met by: 02/22/18 Progress towards Goal:: Partially Met Goal #4: pt report improved ability to perform cervical ROM to improve ADL's Goal to be met by: 02/22/18 Progress towards Goal:: No Change Assisted Goals Goal #1: pt report pain <5/10 with activity Goal to be met by: 03/15/18 Progress towards goal: Progressing Goal #2: Improved cervical ROM to allow for functional ROM for driving Goal to be met by: 03/15/18 Goal #3: Improved BUE strength to allow pt to perform daily chores independently Goal to be met by: 03/15/18 Progress towards goal: Partially Met Goal #4: pt independent with HEP to maintain functional gains Goal to be met by: 03/15/18 Progress towards goal: Progressing Plan PLAN OF CARE EXPIRES ON:: 03/15/18 ORDER # VISITS AND/OR THROUGH DATE: 03/15/18 PLAN: Continue PT to reduce/eliminate cervical pain ,increased ROM for safer ADL 's ,such as driving when Dr. peters.
--- NOTE | 2018-02-20 09:04 | RS.OPPTDN ---
Subjective Date of Note: 02/20/18 Visit #: 6 Date of Evaluation: 02/01/18 Payer Source: MEDICARE Treatment Diagnosis: s/p cervical spinal fusion, unsteady gait, BUE weakness, Current Subjective/complaints:: Patient reports the motion in the neck feels about the same,and the muscle relaxers help control the pain for a longer duration.He also reports that he occasionally has R jaw pain around mid-day. Pain Assessment - Pain Description Pain Location: cervical Pain Description: Tightness, Dull, Aching, Chronic Current Pain Intensity: 5-6 Worst Pain Intensity: 6 - Heat/Cryotherapy Treatment: Hot Pack (20 mins. prior to ex and manual therapy) Interventions - Exercise/Activities/Manual Therapy Exercises/Activities: 20 mins. total , cervical rotation to L and R,lateral flexion,flexion/extension ,chin tucks. Instructed to continue corner stretches and postural exercises at home . Manual Therapy: 20 mins.deep tissue mobs. to cervical/upper traps area. HOME EXERCISE PROGRAM: pt given written HEP including: corner stretch, scapular retracion, shld shrugs. - Charges Timed Code Treatment Minutes: 40 Total Treatment Time: 60 Procedures billed for this date of service:: hp,ex,manual Assessment: Patient has slight increase in cervical rotation today,also has improved technique for chin tucks when tactile cues are given.The pain level is basically throughout the day,per patient report.He is compliant to HEP and recommendations of the therapy staff.We discussed initiating the D/C plan this week ,as he is approaching the rehab potential and has improved understanding of HEP. Patient Education: Education of diagnosis, Body/Joint mechanics, Home Exercise Program, Home Safety, Activity Modification, Education of Plan of Care Patient demonstrates compliance with HEP?: Yes Short Term Goals Goal #1: pt with improved cervical ROM by 20% Goal to be met by: 02/22/18 Progress towards Goal:: Progressing Goal #2: pt rate pain less than 8/10 with activity Goal to be met by: 02/22/18 Progress towards Goal:: Partially Met Goal #3: pt independent with initial HEP Goal to be met by: 02/22/18 Progress towards Goal:: Partially Met Goal #4: pt report improved ability to perform cervical ROM to improve ADL's Goal to be met by: 02/22/18 Progress towards Goal:: Progressing Barnworker Groom Goals Goal #1: pt report pain <5/10 with activity Goal to be met by: 03/15/18 (5-6 average pain throughout the day) Progress towards goal: Partially Met Goal #2: Improved cervical ROM to allow for functional ROM for driving Goal to be met by: 03/15/18 Comments: not allowed to drive per mana [address] Dr. appt. is 03-01-18 Goal #3: Improved BUE strength to allow pt to perform daily chores independently Goal to be met by: 03/15/18 Progress towards goal: Met Goal #4: pt independent with HEP to maintain functional gains Goal to be met by: 03/15/18 Progress towards goal: Met Plan PLAN OF CARE EXPIRES ON:: 03/15/18 ORDER # VISITS AND/OR THROUGH DATE: 03/15/18 PLAN: Continue PT to achieve maximum cervical motion with less pain present.
--- NOTE | 2018-02-22 09:04 | RS.OPPTDN ---
Subjective Date of Note: 02/22/18 Visit #: 7 Date of Evaluation: 02/01/18 Payer Source: MEDICARE Treatment Diagnosis: s/p cervical spinal fusion, unsteady gait, BUE weakness, Current Subjective/complaints:: Patient feels comfortable with HEP now.He reports no headaches,but cervical pain varies.He feels he can concentrate better with daily activities.He reports the cervical pain is moderate this AM.He returns to on 03-01-18,hopes to be allowed to drive. Pain Assessment - Pain Description Pain Location: cervical Pain Description: Dull, Aching, Chronic Current Pain Intensity: 3 Worst Pain Intensity: 5 - Heat/Cryotherapy Treatment: Cryotherapy (20 mins. prior to manual therapy) Interventions - Exercise/Activities/Manual Therapy Exercises/Activities: HEP review during manual therapy. Total minutes of Exercise: 0 Manual Therapy: 25 mins.deep tissue mobs. to cervical/upper traps area. Total minutes of Manual Therapy: 25 HOME EXERCISE PROGRAM: pt given written HEP including: corner stretch, scapular retracion, shld shrugs.Added cervical rotation,lateral flexion in PAIN FREE ROM . - Charges Timed Code Treatment Minutes: 25 Total Treatment Time: 45 Procedures billed for this date of service:: hp,manual therapy 2 Assessment: Patient has met rehab potential.He reports less intensity of cervical pain with ADL's.He has met or partially met rehab goals.He is aware of D/C plan today. Patient Education: Education of diagnosis, Body/Joint mechanics, Home Exercise Program, Home Safety, Activity Modification, Education of Plan of Care Patient demonstrates compliance with HEP?: Yes Short Term Goals Goal #1: pt with improved cervical ROM by 20% Goal to be met by: 02/22/18 Progress towards Goal:: Partially Met Goal #2: pt rate pain less than 8/10 with activity Goal to be met by: 02/22/18 Progress towards Goal:: Met Goal #3: pt independent with initial HEP Goal to be met by: 02/22/18 Progress towards Goal:: Met Goal #4: pt report improved ability to perform cervical ROM to improve ADL's Goal to be met by: 02/22/18 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 on 03-01-18,hopes to be released to drive Goal #3: Improved BUE strength to allow pt to perform daily chores independently Goal to be met by: 03/15/18 Progress towards goal: Met Goal #4: pt independent with HEP to maintain functional gains Goal to be met by: 03/15/18 Progress towards goal: Met Plan PLAN OF CARE EXPIRES ON:: 03/15/18 ORDER # VISITS AND/OR THROUGH DATE: 03/15/18 PLAN: Discuss status with PT,plan to D/C.
--- NOTE | 2018-02-26 11:04 | RS.OPPTDC ---
Date of Discharge: 02/22/18 Date of Evaluation: 02/01/18 Number of Visits: 7 Treatment Diagnosis: s/p cervical spinal fusion, unsteady gait, BUE weakness, Current Level of Function: Cervical AROM: Rotation to L 20, R 18, flexion 8, extension 10, lat flexion 10. pt continues with pain 5/10. Current Complaints/Gains: pt reports he is independent with HEP. pt states he is hopeful that the MD will allow him to resume driving at next appt on 03/01/18. Pain Assessment - Pain Description Pain Location: cervical pain Pain Description: Aching Current Pain Intensity: 5/10 Functional Outcome Measure Neck Disability Index: 17 (34%) - G Codes & Severity Modifier G Codes & Modifier: carrying moving and handling DC CJ. carrying moving and handling goal CJ Source of G Code score: neck disability index Observation - Observation Posture: Forward Head, Rounded Shoulders, Decreased Cervical Lordosis Handedness: Right Gait - Gait Pattern General Gait Pattern Observation: No Deviations/Normal Interventions - Exercise/Activities/Manual Therapy Exercises/Activities: n/a Manual Therapy: n/a HOME EXERCISE PROGRAM: pt given written HEP including: corner stretch, scapular retracion, shld shrugs.Added cervical rotation,lateral flexion in PAIN FREE ROM . - Charges Timed Code Treatment Minutes: n/a Total Treatment Time: n/a Procedures billed for this date of service:: n/a Assessment Assessment: pt met STG 2,3 , LTG 3,4 pt made progress toward remaining goals. pt continues with limited cervical ROM as well as pain. Feel pt has reached a plateau with progress at this time. 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
== END 2018-03-11 23:59 ==
PROVIDERS: ATTEND Neurological Surgery
DX: Z98.890 Other specified postprocedural states (principal); M54.2 Cervicalgia; M62.89 Other specified disorders of muscle; Z98.1 Arthrodesis status; G95.20 Unspecified cord compression; R26.81 Unsteadiness on feet; R29.898 Other symptoms and signs involving the musculoskeletal system; R29.818 Other symptoms and signs involving the nervous system; R27.8 Other lack of coordination